=== PATIENT | male | born 1950 | race Caucasian/White ===

== ENCOUNTER → 2017-02-27 | Outpatient (CLI) | payer MEDICARE, OTHER ==
[~2017-02-27] MED LIST: CALMOSEPTINE1 OIN TP; DOVONEX CR60 G2 TP; DOVONEX0.0051 TP; EXCEDRIN1 TAB PO; FISH OIL1 IU PO; MAGNESIUM500 MG PO; METAMUCIL3.4 GM/Dos PO; MVI PO; NO HOME MEDICATIONS; OCUVITE PO; OSCAL 500 TAB500 MG PO; SELENIUM200 MC5 PO; THE MEDICINE S200 M2 PO; VITAMIN B COMPL1 SGL PO; VITAMIN D 400400 IU PO; VITAMIN D PO; VITAMIN E 400 U4001 PO; VITAMINC1000TA PO; [UNRECOGNIZED DRUG - OTHER] TOP
== END ==
LOC: COL.PUL 02-18 14:00
DX: R06.09 Other forms of dyspnea (principal)

== ENCOUNTER → 2017-04-21 | Outpatient (CLI) | payer MEDICARE, OTHER | LOC: COL.VAS 14:09 | DX: I34.0 Nonrheumatic mitral (valve) insufficiency (principal); R06.02 Shortness of breath ==

== ENCOUNTER → 2017-07-04 | Outpatient (CLI) | payer MEDICARE, OTHER | LOC: COL.PUL 05-23 13:00 | DX: R06.02 Shortness of breath (principal) | CPT/HCPCS: J7674 ==

== ENCOUNTER 2017-07-16 08:49 | Day surgery (SDC) | payer MEDICARE, OTHER ==
[~2017-07-16] VITALS: Ht 188 cm; Wt 104.9 kg
[2017-07-16] VITALS (10 sets, daily range): BP systolic 119–156; BP diastolic 66–80; PULSE 48–76; TEMP 96.2–97.3
[~2017-07-16 08:49] MED LIST changes: -EXCEDRIN1 TAB PO; -MAGNESIUM500 MG PO; -OSCAL 500 TAB500 MG PO; -SELENIUM200 MC5 PO; -THE MEDICINE S200 M2 PO; -VITAMIN B COMPL1 SGL PO; -VITAMIN D 400400 IU PO; -VITAMIN E 400 U4001 PO; -VITAMINC1000TA PO
[2017-07-16] MEDS ORDERED: VITAMINC1000TA PO (09:24)
[2017-07-16] MEDS ORDERED: VITAMIN E 400 U4001 PO (09:24)
[2017-07-16] MEDS ORDERED: SELENIUM200 MC5 PO (09:25)
[2017-07-16] MEDS ORDERED: THE MEDICINE S200 M2 PO (09:25)
[2017-07-16] MEDS ORDERED: VITAMIN B COMPL1 SGL PO (09:26)
[2017-07-16] MEDS ORDERED: VITAMIN D 400400 IU PO (09:26)
[2017-07-16] MEDS ORDERED: MAGNESIUM500 MG PO (09:27)
[2017-07-16] MEDS ORDERED: OSCAL 500 TAB500 MG PO (09:27)
[2017-07-16] MEDS ORDERED: EXCEDRIN1 TAB PO (09:28)
== END 2017-07-16 16:42 | disposition home or self-care (01) ==
LOC: SDCO 08:49
DX: K40.91 Unilateral inguinal hernia, without obstruction or gangrene, recurrent (principal); J45.909 Unspecified asthma, uncomplicated; G47.33 Obstructive sleep apnea (adult) (pediatric); Z90.79 Acquired absence of other genital organ(s); Z85.828 Personal history of other malignant neoplasm of skin; Z80.0 Family history of malignant neoplasm of digestive organs; Z80.3 Family history of malignant neoplasm of breast; Z82.49 Family history of ischemic heart disease and other diseases of the circulatory system
CPT/HCPCS: A4315; C1781; J0330; J0690; J1100; J1170; J1885; J2405; J2704; J2710; J3010; J7120

== ENCOUNTER → 2017-07-31 | Outpatient (CLI) | payer MEDICARE, OTHER ==
[~2017-07-31] MED LIST changes: +EXCEDRIN1 TAB PO; +MAGNESIUM500 MG PO; +OSCAL 500 TAB500 MG PO; +SELENIUM200 MC5 PO; +THE MEDICINE S200 M2 PO; +VITAMIN B COMPL1 SGL PO; +VITAMIN D 400400 IU PO; +VITAMIN E 400 U4001 PO; +VITAMINC1000TA PO
== END ==
LOC: COL.RAD 10:49
DX: M17.12 Unilateral primary osteoarthritis, left knee (principal); M79.605 Pain in left leg

== ENCOUNTER 2020-04-03 14:00 | Outpatient (RCR) | payer MEDICARE | END 2020-04-04 | disposition still patient (30) | LOC: WSPT | DX: M62.81 Muscle weakness (generalized) (principal); Z96.641 Presence of right artificial hip joint ==

== ENCOUNTER 2020-05-22 14:00 | Outpatient (RCR) | payer MEDICARE | END 2020-07-16 | disposition home or self-care (01) | LOC: WSPT | DX: M62.81 Muscle weakness (generalized) (principal); Z96.641 Presence of right artificial hip joint ==

== ENCOUNTER 2020-11-02 13:40 | Outpatient (RCR) | payer MEDICARE, OTHER | END 2020-12-04 | disposition home or self-care (01) | LOC: WSST | DX: R13.10 Dysphagia, unspecified (principal); R49.9 Unspecified voice and resonance disorder ==

== ENCOUNTER 2021-05-04 10:27 | Day surgery (SDC) | payer MEDICARE ==
[~2021-05-04] VITALS: Ht 188 cm; Wt 104.5 kg
[2021-05-04 11:20] VITALS: BP 133/67; PULSE 65; TEMP 97.9
[2021-05-04] MEDS ORDERED: NP THYROID60 MG PO (11:40)
[2021-05-04] MEDS ORDERED: DEPO-TESTOS200 MG/M1 IM (11:42)
[2021-05-04] MEDS ORDERED: STROMECTOL3 MG PO (11:46)
[2021-05-04] MEDS ORDERED: VITAMIN A10k PO (11:47)
[2021-05-04] MEDS ORDERED: VITAMIND3 5000 PO ×2 (11:49→11:50)
[2021-05-04] MEDS ORDERED: K2-4545 MCG PO (11:51)
[2021-05-04] MEDS ORDERED: NATURAL MAGNES200 MG PO (11:52)
[2021-05-04] MEDS ORDERED: LYSINE1000 MG PO (11:53)
[2021-05-04] MEDS ORDERED: PROLINE PO (11:57)
[2021-05-04] MEDS ORDERED: [UNRECOGNIZED DRUG - OTHER] PO (11:58)
[2021-05-04] MEDS ORDERED: PHARMASSURE CHE30 MG PO (11:58)
[2021-05-04] MEDS ORDERED: TEMOVATE0.05% TP (11:59)
[2021-05-04] MEDS ORDERED: DOVONEX CR60 G2 TP (12:00)
[2021-05-04 13:30] VITALS: BP 134/83; PULSE 68
--- NOTE | 2021-05-04 13:30 | NUR ---
RECEIVED 1 CUP CRANBERRY JUICE. PATIENT CONTINUES TO C/O OF FEELING SLEEPY.
[2021-05-04 14:19] VITALS: BP 122/72; PULSE 56; TEMP 97.5
--- NOTE | 2021-05-04 14:19 | NUR ---
TO RM 6 PER CART FROM OR. OPENS EYES AND FALLS BACK TO SLEEP. AT BEDSIDE. POST OP SHOE ON L FOOT. DRESSING OVER LEFT FOOT CLEAN DRY AND INTACT. ELEVATED AND ICED ORDERED.
[2021-05-04 14:35] VITALS: BP 129/68; PULSE 52
--- NOTE | 2021-05-04 14:35 | NUR ---
REVIEWED POST OP INSTRUCTIONS WITH FROM OFFICE AND SHE RECEIVED A COPY. PATIENT CONTINUES TO SLEEP QUIETLY.
[2021-05-04] MEDS ORDERED: STOOL SOFTENER100 M2 PO (14:41)
[2021-05-04] MEDS ORDERED: TYLENOL W/COD1 UDTAB PO (14:42)
[2021-05-04 14:45] VITALS: BP 126/73; PULSE 57
--- NOTE | 2021-05-04 14:45 | NUR ---
RECEIVED APPLE JUICE AND SEA. PUDDING. REPOSTIONED PER PATIENT COMFORT.
[2021-05-04 15:00] VITALS: BP 122/74; PULSE 54
--- NOTE | 2021-05-04 15:00 | NUR ---
ATE 100% AND TOLERATED WELL. PATIENT ASK TO REST. LAYED HEAD OF BED BACK TO PATIENTS COMFORT.
--- NOTE | 2021-05-04 16:00 | NUR ---
AMBULATED TO BATHROOM USING WALKER AND 2 STANDBY ASSIST. WALKING WITH POST OP SHOE. VOIDED AND AMBULATED BACK TO BED.
--- NOTE | 2021-05-04 16:15 | NUR ---
RECEIVED DISCHARGE INSTRUCTIONS AND VERBALIZED UNDERSTANDING. REVIEWED THE POST OP INSTRUCTIONS FROM OFFICE AGAIN. DISCONTINED IV AND INT- PATIENT GETTING DRESSED ASSISTED BY .
--- NOTE | 2021-05-04 16:35 | NUR ---
DISCHARGED PER BY NURSING STAFF. PATIENT TRANSFERED SELF INTO CAR. PATIENS STATED HIS DAUGHTER WAS GOING TO MEET THEM AT THE HOUSE WITH A WALKER.
[2021-05-04] MEDS ORDERED: OMNICEF 300MG300 MG PO (17:41)
== END 2021-05-04 16:49 | disposition home or self-care (01) ==
LOC: SDCO 10:27
DX: M20.5X2 Other deformities of toe(s) (acquired), left foot (principal); D16.32 Benign neoplasm of short bones of left lower limb; M20.22 Hallux rigidus, left foot; G47.33 Obstructive sleep apnea (adult) (pediatric); M21.612 Bunion of left foot; M19.072 Primary osteoarthritis, left ankle and foot; M19.90 Unspecified osteoarthritis, unspecified site; J45.909 Unspecified asthma, uncomplicated; E03.9 Hypothyroidism, unspecified; E66.9 Obesity, unspecified; R53.82 Chronic fatigue, unspecified; E55.9 Vitamin D deficiency, unspecified; L40.9 Psoriasis, unspecified; M46.07 Spinal enthesopathy, lumbosacral region; E29.1 Testicular hypofunction; H91.93 Unspecified hearing loss, bilateral; Z79.52 Long term (current) use of systemic steroids; Z79.899 Other long term (current) drug therapy; Z85.46 Personal history of malignant neoplasm of prostate; Z79.890 Hormone replacement therapy; Z99.89 Dependence on other enabling machines and devices; Z90.89 Acquired absence of other organs; Z68.30 Body mass index [BMI] 30.0-30.9, adult; Z90.79 Acquired absence of other genital organ(s)
CPT/HCPCS: J0690; J1200; J2704; J3010; J7120

== ENCOUNTER 2021-11-29 15:00 | Outpatient (RCR) | payer MEDICARE ==
[~2021-11-29 15:00] MED LIST changes: +DEPO-TESTOS200 MG/M1 IM; +K2-4545 MCG PO; +LYSINE1000 MG PO; +NATURAL MAGNES200 MG PO; +NP THYROID60 MG PO; +OMNICEF 300MG300 MG PO; +PHARMASSURE CHE30 MG PO; +PROLINE PO; +STOOL SOFTENER100 M2 PO; +STROMECTOL3 MG PO; +TEMOVATE0.05% TP; +TYLENOL W/COD1 UDTAB PO; +VITAMIN A10k PO; +VITAMIND3 5000 PO; +[UNRECOGNIZED DRUG - OTHER] PO
== END 2021-11-30 | disposition home or self-care (01) ==
LOC: WSPT
DX: M62.59 Muscle wasting and atrophy, not elsewhere classified, multiple sites (principal); R26.89 Other abnormalities of gait and mobility

== ENCOUNTER 2022-01-10 15:00 | Outpatient (RCR) | payer MEDICARE | END 2022-01-28 | disposition home or self-care (01) | LOC: WSOT | DX: M62.50 Muscle wasting and atrophy, not elsewhere classified, unspecified site (principal); Z98.890 Other specified postprocedural states ==

== ENCOUNTER 2022-01-24 13:30 | Outpatient (RCR) | payer MEDICARE | END 2022-01-28 | disposition home or self-care (01) | LOC: WSOT | DX: M65.30 Trigger finger, unspecified finger (principal) ==

== ENCOUNTER 2022-02-07 14:51 | Outpatient (RCR) | payer MEDICARE | END 2022-02-08 13:26 | disposition home or self-care (01) | LOC: WSOT 14:51 | DX: R26.89 Other abnormalities of gait and mobility (principal); M62.50 Muscle wasting and atrophy, not elsewhere classified, unspecified site ==

== ENCOUNTER 2022-02-18 14:15 | Outpatient (RCR) | payer MEDICARE | END 2022-02-28 | disposition home or self-care (01) | LOC: WSOT | DX: M65.342 Trigger finger, left ring finger (principal) ==

== ENCOUNTER 2022-03-07 14:15 | Outpatient (RCR) | payer MEDICARE | END 2022-03-07 15:00 | disposition home or self-care (01) | LOC: WSOT 14:15 | DX: M65.30 Trigger finger, unspecified finger (principal) ==